=== PATIENT | male | born 2000 | race Caucasian/White ===

== ENCOUNTER 2020-04-21 09:24 | Emergency (ER) | payer BC, OTHER ==
[~2020-04-21] VITALS: Ht 177 cm; Wt 57.0 kg
[2020-04-21] MEDS ORDERED: TETANUS,DIPTH,PERTUSS P/F (BOOSTRIX) 0.5 ML VIAL IM ONE (09:45)
[2020-04-21] MEDS ORDERED: fentaNYL INJECTION 100 MCG/2 ML AMP IM ONE (09:45)
[2020-04-21] MEDS ORDERED: LACTATED RINGERS 1,000 ML IV ONE (09:46)
--- NOTE | 2020-04-21 09:46 | ED Fall/Injury ---
General Chief Complaint: Facial Problems Stated Complaint: JAW INJ Source: patient Exam Limitations: no limitations History of Present Illness Date Seen by Provider: Apr 21, 2020 Time Seen by Provider: 09:28 Initial Comments Patient arrives to ER by private conveyance with chief complaint that he was doing some drinking last night and thinks he drank more than 10 beers when he went to sleep in a bunk bed he rolled out landing on his face causing a small laceration to his chin. He has osteogenesis imperfecta. He's having pain anywhere else but he does have a mild headache. He has difficulty opening his jaw. Allergies and Home Medications Allergies Coded Allergies: No Known Drug Allergies (Unverified , 04/21/20) Patient Home Medication List Home Medication List Reviewed: Yes Review of Systems Review of Systems Constitutional: No chills, No diaphoresis Eyes: Denies Blindness, Denies Blurred Vision Ears, Nose, Mouth, Throat: see HPI; denies ear pain, denies ear discharge Respiratory: No cough, No short of breath Cardiovascular: No chest pain, No palpitations Gastrointestinal: No constipation, No diarrhea, No nausea All Other Systems Reviewed Negative Unless Noted: Yes Past Ihqvwqj-Nlndjw-Tsidcm Hx Patient Social History Alcohol Use: Occasionally Uses Alcohol Beverage of Choice: Beer Recreational Drug Use: Yes Drug of Choice: cannabis Smoking Status: Never a Smoker Recent Foreign Travel: No Contact w/Someone Who Travel: No Physical Exam Vital Signs Vital Signs - First Documented 04/21/20 09:47 Temp 37.0 Pulse 97 Resp 16 B/P (MAP) 121/83 (96) Pulse Ox 100 O2 Delivery Room Air Capillary Refill : Height, Weight, BMI Height: '" Weight: lbs. oz. kg; BMI Method: General Appearance: WD/WN, mild distress HEENT: PERRL/EOMI, other (oral mucosa is moist. He is able to separate his teeth about 4 mm limited to pain. Tenderness over bilateral TMJ) Neck: full range of motion, supple, normal inspection Cardiovascular: normal peripheral pulses, regular rate, rhythm Respiratory: no respiratory distress, no accessory muscle use Peripheral Pulses: 2+ Radial Pulses (R), 2+ Radial Pulses (L) Neurologic/Psychiatric: alert, normal mood/affect, oriented x 3 Skin: other (small few millimeter laceration on the inferior mentum) Progress/Results/Core Measures Results/Orders Lab Results Laboratory Tests Test 04/21/20 09:25 Range/Units White Blood Count 6.4 4.3-11.0 10^3/uL Red Blood Count 5.48 4.35-5.85 10^6/uL Hemoglobin 17.2 13.3-17.7 G/DL Hematocrit 48 40-54 % Mean Corpuscular Volume 88 80-99 FL Mean Corpuscular Hemoglobin 31 25-34 PG Mean Corpuscular Hemoglobin Concent 36 32-36 G/DL Red Cell Distribution Width 14.2 10.0-14.5 % Platelet Count 261 130-400 10^3/uL Mean Platelet Volume 10.1 7.4-10.4 FL Neutrophils (%) (Auto) 63 42-75 % Lymphocytes (%) (Auto) 27 12-44 % Monocytes (%) (Auto) 7 0-12 % Eosinophils (%) (Auto) 3 0-10 % Basophils (%) (Auto) 0 0-10 % Neutrophils # (Auto) 4.0 1.8-7.8 X 10^3 Lymphocytes # (Auto) 1.7 1.0-4.0 X 10^3 Monocytes # (Auto) 0.5 0.0-1.0 X 10^3 Eosinophils # (Auto) 0.2 0.0-0.3 10^3/uL Basophils # (Auto) 0.0 0.0-0.1 10^3/uL Sodium Level 143 135-145 MMOL/L Potassium Level 4.2 3.6-5.0 MMOL/L Chloride Level 109 H 98-107 MMOL/L Carbon Dioxide Level 20 L 21-32 MMOL/L Anion Gap 14 5-14 MMOL/L Blood Urea Nitrogen 9 7-18 MG/DL Creatinine 0.83 0.60-1.30 MG/DL Estimat Glomerular Filtration Rate > 60 BUN/Creatinine Ratio 11 Glucose Level 85 70-105 MG/DL Calcium Level 8.5 8.5-10.1 MG/DL Corrected Calcium 8.2 L 8.5-10.1 MG/DL Total Bilirubin 0.5 0.1-1.0 MG/DL Aspartate Amino Transf (AST/SGOT) 38 H 5-34 U/L Alanine Aminotransferase (ALT/SGPT) 43 0-55 U/L Alkaline Phosphatase 103 40-136 U/L Total Protein 7.4 6.4-8.2 GM/DL Albumin 4.4 3.2-4.5 GM/DL Serum Alcohol 150 H <10 MG/DL My Orders Orders - MARCELL ROBBINS Ct Head/Face/Cervical Wo (04/21/20 09:40) Dipht,Pertuss(Acell),Tet Adult (Boostrix (04/21/20 09:45) Cbc With Automated Diff (04/21/20 09:46) Comprehensive Metabolic Panel (04/21/20 09:46) Alcohol (04/21/20 09:46) Ed Iv/Invasive Line Start (04/21/20 09:46) Lactated Ringers (Lr 1000 Ml Iv Solution (04/21/20 09:46) Fentanyl Injection (Sublimaze Injection (04/21/20 10:00) Medications Given in ED Current Medications Medications Dose Ordered Sig/Shelly Route Start Time Stop Time Status Last Admin Dose Admin Diphtheria/ Tetanus/Acell Pertussis 0.5 ml ONCE ONCE IM 04/21/20 09:45 04/21/20 09:46 DC 04/21/20 10:00 0.5 ML Fentanyl Citrate 50 mcg ONCE ONCE IVP 04/21/20 10:00 04/21/20 10:01 DC 04/21/20 10:04 50 MCG Lactated Ringer's 1,000 ml @ 0 mls/hr Q0M ONCE IV 04/21/20 09:46 04/21/20 09:48 DC 04/21/20 09:56 1,000 MLS/HR Vital Signs/I&O 04/21/20 09:47 Temp 37.0 Pulse 97 Resp 16 B/P (MAP) 121/83 (96) Pulse Ox 100 O2 Delivery Room Air Progress Progress Note #1: Time: 09:49 Progress Note Fentanyl, CT of the head face and C-spine, labs including alcohol and a liter of lactated Ringer's. Suspect bilateral rami fracture Progress Note #2: Time: 11:42 Progress Note The patient was asleep when this provider entered the room. He aroused easily and went to the bathroom. We discussed the case with Dr. Garcia, oral maxillary facial surgeon. If his pain is under control he will follow him up at 11 AM on Friday morning. Diagnostic Imaging Diagonstic Imaging: CT Plain Films/CT/US/NM/MRI: facial bones, c-spine, head Comments NAME: HECTOR BILLINGSLEY [facility] REC#: [id number] PT STATUS: REG ER : 2000 PHYSICIAN: MARCELL ROBBINS MD ADMIT DATE: 04/21/20/ER Draft Date of Exam:04/21/20 CT HEAD/FACE/CERVICAL WO PROCEDURE: CT head, face, and cervical spine without contrast. TECHNIQUE: Multiple contiguous axial images were obtained through the head, neck, and facial bones without the use of intravenous contrast. Sagittal and coronal reformations through the cervical spine and facial bones were also performed. Auto Exposure Controls were utilized during the CT exam to meet ALARA standards for radiation dose reduction. INDICATION: Fall with trauma to the head, face and cervical spine. COMPARISON: No prior studies are available for comparison. CT HEAD: Ventricles and sulci are within normal limits. No sulcal effacement, midline shift or hemorrhage is detected. Cisterns are patent. Visualized paranasal sinuses demonstrate some mucosal thickening of ethmoid air cells but are otherwise clear. IMPRESSION: No acute intracranial process is detected. CT CERVICAL SPINE: Alignment is normal. No fracture or subluxation is identified. Prevertebral tissues are within normal limits. Odontoid is intact. IMPRESSION: No acute bony abnormality is detected. CT FACE: There is a comminuted fracture involving the left mandible at the level just distal to the mandibular condyle, involving the mandibular ramus. Mandibular condyle is in a slightly low anterior location of the TMJ. The remainder of the mandible is intact. Zygomatic arches are intact. The maxillary sinus finch, nasal bones and orbital finch appear to be intact. There is mucosal thickening of the frontal sinus as well as ethmoid air cells and bilateral maxillary sinuses. There is nasal septal deviation to the left. IMPRESSION: Comminuted left mandibular ramus fracture, as described. No other significant abnormality is detected. Dictated on workstation # [id number] Dict: 04/21/20 1102 Trans: 04/21/20 1112 [facility] [id number] Interpreted by: REBECCA CHURCHILL MD Electronically signed by: Reviewed: Reviewed by Me Departure Impression Primary Impression: Fracture of left ramus of mandible Qualified Codes: S02.642A - Fracture of ramus of left mandible, initial encounter for closed fracture Disposition: 01 HOME, SELF-CARE Condition: Stable Departure-Patient Inst. Decision time for Depature: 11:40 Referrals: ANNALISA GARCIA DDS Patient Instructions: Jaw Fracture (DC) Add. Discharge Instructions: Ibuprofen 800 mg every 8 hours as necessary for pain. Hydrocodone 15 mL every 6 hours as necessary for pain. Do not mix this with alcohol as it may cause unsafe drowsiness. This may also cause constipation so it's recommended that you take a capful of MiraLAX mixed in 6-8 ounces of fluid daily to stay regular. Ice applied directly to the left side of your jaw for 20 minutes every 2 hours for the first 2 days will help reduce swelling and pain. Liquid diet. After the first 2 days then heating pads and be helpful for your pain. Promptly return to the nearest ER if you're unable to swallow fluids or having difficulty breathing. All discharge instructions reviewed with patient and/or family. Voiced understanding. Scripts Hydrocodone/Acetaminophen (Hydrocodone-Acetamn 7.5-325/15) 118 Ml Solution 10-15 ML PO Q6H PRN for PAIN-BREAKTHROUGH for 4 Days, #200 ML 0 Refills Prov: MARCELL ROBBINS 04/21/20 Work/School Note: Work Release Form Date Seen in the Emergency Department: Apr 21, 2020 Return to Work: Apr 25, 2020 Restrictions: Need Release from Doctor Other Restrictions Listed Below: Minimize talking MARCELL ROBBINS Apr 21, 2020 09:46
[2020-04-21 09:47] VITALS: BP 121/83
[2020-04-21] MEDS ORDERED: fentaNYL INJECTION 100 MCG/2 ML AMP IVP ONE (10:00)
[2020-04-21 10:15] LABS: BASOPHILS % (AUTO) 0 % (0-10); EOSINOPHILS # (AUTO) 0.2 10^3/uL (0.0-0.3); EOSINOPHILS % (AUTO) 3 % (0-10); HEMATOCRIT 48 % (40-54); HEMOGLOBIN 17.2 G/DL (13.3-17.7); LYMPHOCYTES # (AUTO) 1.7 X 10^3 (1.0-4.0); LYMPHOCYTES % (AUTO) 27 % (12-44); MEAN CORPUSCULAR HEMOGLOBIN 31 PG (25-34); MEAN CORPUSCULAR HGB CONC 36 G/DL (32-36); MEAN CORPUSCULAR VOLUME 88 FL (80-99); MEAN PLATELET VOLUME 10.1 FL (7.4-10.4); MONOCYTES # (AUTO) 0.5 X 10^3 (0.0-1.0); MONOCYTES % (AUTO) 7 % (0-12); NEUTROPHILS % (AUTO) 63 % (42-75); PLATELET COUNT 261 10^3/uL (130-400); WHITE BLOOD COUNT 6.4 10^3/uL (4.3-11.0)
[2020-04-21 10:27] LABS: ALBUMIN 4.4 GM/DL (3.2-4.5); CHLORIDE 109 MMOL/L (98-107); POTASSIUM 4.2 MMOL/L (3.6-5.0); SODIUM 143 MMOL/L (135-145)
[2020-04-21 10:28] LABS: CALCIUM 8.5 MG/DL (8.5-10.1)
[2020-04-21 10:29] LABS: GLUCOSE 85 MG/DL (70-105); TOTAL PROTEIN 7.4 GM/DL (6.4-8.2)
[2020-04-21 10:30] LABS: CARBON DIOXIDE 20 MMOL/L (21-32)
[2020-04-21 10:31] LABS: BILIRUBIN,TOTAL 0.5 MG/DL (0.1-1.0)
[2020-04-21 10:33] LABS: ALKALINE PHOSPHATASE 103 U/L (40-136); CREATININE SERUM 0.83 MG/DL (0.60-1.30); GFR ESTIMATED > 60
[2020-04-21 10:34] LABS: BUN/CREATININE RATIO 11
[2020-04-21 10:36] LABS: ALANINE AMINOTRANSFERASE 43 U/L (0-55)
--- NOTE | 2020-04-21 11:12 | Diagnostic Imaging Report ---
PROCEDURE: CT head, face, and cervical spine without contrast. TECHNIQUE: Multiple contiguous axial images were obtained through the head, neck, and facial bones without the use of intravenous contrast. Sagittal and coronal reformations through the cervical spine and facial bones were also performed. Auto Exposure Controls were utilized during the CT exam to meet ALARA standards for radiation dose reduction. INDICATION: Fall with trauma to the head, face and cervical spine. COMPARISON: No prior studies are available for comparison. CT HEAD: Ventricles and sulci are within normal limits. No sulcal effacement, midline shift or hemorrhage is detected. Cisterns are patent. Visualized paranasal sinuses demonstrate some mucosal thickening of ethmoid air cells but are otherwise clear. IMPRESSION: No acute intracranial process is detected. CT CERVICAL SPINE: Alignment is normal. No fracture or subluxation is identified. Prevertebral tissues are within normal limits. Odontoid is intact. IMPRESSION: No acute bony abnormality is detected. CT FACE: There is a comminuted fracture involving the left mandible at the level just distal to the mandibular condyle, involving the mandibular ramus. Mandibular condyle is in a slightly low anterior location of the TMJ. The remainder of the mandible is intact. Zygomatic arches are intact. The maxillary sinus finch, nasal bones and orbital finch appear to be intact. There is mucosal thickening of the frontal sinus as well as ethmoid air cells and bilateral maxillary sinuses. There is nasal septal deviation to the left. IMPRESSION: Comminuted left mandibular ramus fracture, as described. No other significant abnormality is detected. Dictated by: Dictated on workstation # [id number]
[2020-04-21] MEDS ORDERED: HYDR118S10 PO (11:46)
== END 2020-04-21 11:54 | disposition home or self-care (01) ==
LOC: ER 09:25
DX: S02.642A Fracture of ramus of left mandible, initial encounter for closed fracture (principal); S01.81XA Laceration without foreign body of other part of head, initial encounter; Z23 Encounter for immunization; W06.XXXA Fall from bed, initial encounter
CPT/HCPCS: 36415; 70450; 70486; 72125; 80053; 80320; 85025; 90715

== ENCOUNTER 2020-09-21 00:11 | Emergency (ER) | payer BC ==
[~2020-09-21 00:11] MED LIST: HYDR118S10 PO
== END 2020-09-21 00:26 | disposition left against medical advice (07) ==
LOC: EDBD → EDUNIT# 00:11 → ER 00:17
DX: S01.91XD Laceration without foreign body of unspecified part of head, subsequent encounter (principal); X58.XXXD Exposure to other specified factors, subsequent encounter

== ENCOUNTER 2020-09-21 06:07 | Emergency (ER) | payer BC ==
[~2020-09-21] VITALS: Ht 177.8 cm; Wt 58.9 kg
--- NOTE | 2020-09-21 06:57 | ED Fall/Injury ---
General Chief Complaint: Laceration Stated Complaint: HEAD LAC Nursing Triage Note: right forehead laceration after falling approx. 0100 Source: patient Exam Limitations: no limitations History of Present Illness Date Seen by Provider: Sep 21, 2020 Time Seen by Provider: 06:40 Initial Comments Patient presents ER by private conveyance from home with chief complaint that in the wee hours of the morning around 130 to 2:00 he slipped on ice and struck his head. He denies loss of consciousness or vomiting. He was drinking. He says he still has a little alcohol on board but feels fine. Has been walking fine and has no nausea or other symptoms. He says he had a tetanus vaccine in the last 1 to 2 years. He was in earlier but decided to leave without being seen because of anxiety. Now he wants his head wound closed. Allergies and Home Medications Allergies Coded Allergies: No Known Drug Allergies (Unverified , 04/21/20) Home Medications Hydrocodone/Acetaminophen 118 Ml Solution, 10-15 ML PO Q6H PRN for PAIN- BREAKTHROUGH Prescribed by: MARCELL ROBBINS on 04/21/20 1146 Patient Home Medication List Home Medication List Reviewed: Yes Review of Systems Review of Systems Constitutional: No chills, No diaphoresis Eyes: Denies Blindness, Denies Blurred Vision Ears, Nose, Mouth, Throat: denies ear pain, denies ear discharge Respiratory: No cough, No short of breath Cardiovascular: No Hx of Intervention, No palpitations Gastrointestinal: No abdominal pain, No nausea Genitourinary: No discharge, No dysuria Past Oukrkqe-Eccyig-Trvnmv Hx Patient Social History Alcohol Use: Occasionally Uses Number of Drinks Today: AA Alcohol Beverage of Choice: Beer Drug of Choice: cannabis Smoking Status: Current Everyday Smoker Type Used: Cigarettes Recent Infectious Disease Expo: No Recent Hopitalizations: No Immunizations Up To Date Tetanus Booster (TDap): Less than 5yrs Seasonal Allergies Seasonal Allergies: No Past Medical History Surgeries: Yes Orthopedic Respiratory: No Cardiac: No Neurological: No Genitourinary: No Gastrointestinal: No Musculoskeletal: No Endocrine: No HEENT: No Cancer: No Psychosocial: No Integumentary: No Blood Disorders: No Physical Exam Vital Signs Vital Signs - First Documented 09/21/20 06:27 Temp 36.8 Pulse 95 Resp 18 B/P (MAP) 125/95 (105) Pulse Ox 100 O2 Delivery Room Air Capillary Refill : Less Than 3 Seconds Height, Weight, BMI Height: '" Weight: lbs. oz. kg; 18.00 BMI Method: General Appearance: WD/WN, no apparent distress HEENT: PERRL/EOMI, normal ENT inspection, TMs normal, pharynx normal, other (2.5 cm laceration linear into the subcutaneous tissue down to the periosteum right frontal scalp at the hairline. Negative for otto sign or raccoon eyes) Neck: non-tender, full range of motion, supple, normal inspection Cardiovascular: normal peripheral pulses, regular rate, rhythm Respiratory: lungs clear, normal breath sounds, no respiratory distress, no accessory muscle use Peripheral Pulses: 2+ Radial Pulses (R), 2+ Radial Pulses (L) Neurologic/Psychiatric: data assistant II-XII nml as tested, no motor/sensory deficits, alert, normal mood/affect, oriented x 3 Delmer Coma Score Best Eye Response: (4) Open Spontaneously Best Verbal Response: (5) Oriented Best Motor Response: (6) Obeys Commands Delmre Total: 15 Procedures/Interventions Wound Location: Scalp Other Wound Location Right frontal at the hairline Wound Length (cm): 2.5 Wound's Depth, Shape: linear, bone Wound Explored: no foreign body removed Irrigated w/ Saline (ccs): 150 Betadine Prep?: Yes (Chlorhexidine) Anesthesia: Lidocaine w/ Epi (2%) Volume Anesthetic (ccs): 2 Wound Debrided: minimal Staple Repair: Stapler 35W Number of Sutures: 5 Progress Skin was thoroughly cleaned flushed and reapproximated and then closed using 5 cayla. Patient tolerated the procedure very well. Progress/Results/Core Measures Results/Orders My Orders Orders - MARCELL ROBBINS Lidocaine/Epi 2% 1:100,000 (Xylocaine/Ep (09/21/20 07:00) Medications Given in ED Current Medications Medications Dose Ordered Sig/Shelly Route Start Time Stop Time Status Last Admin Dose Admin Lidocaine/ Epinephrine 20 ml ONCE ONCE INJ 09/21/20 07:00 09/21/20 07:01 DC 09/21/20 07:17 20 ML Vital Signs/I&O 09/21/20 09/21/20 06:27 07:17 Temp 36.8 36.8 Pulse 95 95 Resp 18 18 B/P (MAP) 125/95 (105) 125/95 (105) Pulse Ox 100 100 O2 Delivery Room Air Blood Pressure Mean: 105 Departure Impression Primary Impression: Fall Qualified Codes: W19.XXXA - Unspecified fall, initial encounter Additional Impressions: Head injury due to trauma Qualified Codes: S09.90XA - Unspecified injury of head, initial encounter Laceration of scalp without complication Qualified Codes: S01.01XA - Laceration without foreign body of scalp, initial encounter Disposition: HOME, SELF-CARE Condition: Improved Departure-Patient Inst. Decision time for Depature: 07:10 Referrals: [facility] (PCP) Primary Care Physician Patient Instructions: Minor Head Injury, Adult ED, Concussion in Adults, Laceration Repair With Cayla (DC) Add. Discharge Instructions: Keep the wound clean with regular soap and water, shampoo body wash etc. Do not use hydrogen peroxide, alcohol or iodine to clean the wound as this will delay wound healing. You may apply a thin dollop of Vaseline or triple antibiotic ointment over the cayla if you wish. You may cover with a dressing if you wish. Keep the wound clean otherwise. Return to the ER in 7 to 10 days to have the cayla removed at no additional charge. Return to the ER sooner if you are having increasing redness drainage or fever. Tylenol and ibuprofen. Return to the ER promptly if you start to have confusion, difficulty walking, intractable vomiting etc. All discharge instructions reviewed with patient and/or family. Voiced understanding. Work/School Note: School/Childcare Release Date Seen in the Emergency Department: Sep 21, 2020 Time Dismissed from Emergency Department: 07:10 Return to School: Sep 22, 2020 Restrictions: No Restrictions Other Restrictions Listed Below: May return to school when feeling better. MARCELL ROBBINS Sep 21, 2020 06:57
[2020-09-21] MEDS ORDERED: LIDOCAINE/EPI 2% 1:100,00 (XYLOCAINE) 20 ML VIAL INJ ONE (07:00)
[2020-09-21 07:17] VITALS: BP 125/95
== END 2020-09-21 07:17 | disposition home or self-care (01) ==
LOC: EDUNIT# 06:07 → ER 06:13 → EDBD 06:13 → ER 07:17
DX: S01.01XA Laceration without foreign body of scalp, initial encounter (principal); S09.90XA Unspecified injury of head, initial encounter; R40.2410 Glasgow coma scale score 13-15, unspecified time; F17.210 Nicotine dependence, cigarettes, uncomplicated; W22.8XXA Striking against or struck by other objects, initial encounter
CPT/HCPCS: 99282

== ENCOUNTER 2020-09-29 13:56 | Emergency (ER) | payer BC ==
[~2020-09-29] VITALS: Ht 177 cm; Wt 58.0 kg
[2020-09-29 13:56] VITALS: BP 109/67
== END 2020-09-29 14:05 | disposition home or self-care (01) ==
LOC: EDUNIT# 13:56 → ER 13:58
DX: S01.91XD Laceration without foreign body of unspecified part of head, subsequent encounter (principal); X58.XXXD Exposure to other specified factors, subsequent encounter

== ENCOUNTER 2021-09-26 16:56 | Emergency (ER) | payer BC ==
[~2021-09-26] VITALS: Ht 177 cm; Wt 58.9 kg
[2021-09-26 16:56] VITALS: BP 146/80
--- NOTE | 2021-09-26 17:14 | ED Lower Extremity ---
General Chief Complaint: Lower Extremity Stated Complaint: CUT FOOT Source: patient Exam Limitations: no limitations History of Present Illness Date Seen by Provider: Sep 26, 2021 Time Seen by Provider: 17:07 Initial Comments To ER with a cut to the plantar surface of the right foot that occurred last night around 1 AM while intoxicated. States that he stepped on a piece of glass. He has had it wrapped. He arrives using his own crutches. Tetanus is up-to-date in the last 5 years. History of osteogenesis imperfecta. Onset: just prior to arrival Severity: moderate Pain/Injury Location: right foot Method of Injury: direct blow Modifying Factors: Worse With Movement Allergies and Home Medications Allergies Coded Allergies: No Known Drug Allergies (Unverified , 04/21/20) Patient Home Medication List Home Medication List Reviewed: Yes Hydrocodone/Acetaminophen (Hydrocodone-Acetamn 7.5-325/15) 118 Ml Solution, 10- 15 ML PO Q6H PRN for PAIN-BREAKTHROUGH Prescribed by: MARCELL ROBBINS on 04/21/20 1146 Review of Systems Constitutional: see HPI EENTM: see HPI Respiratory: no symptoms reported Cardiovascular: no symptoms reported Genitourinary: no symptoms reported Musculoskeletal: no symptoms reported Skin: no symptoms reported Psychiatric/Neurological: No Symptoms Reported Past Fxvwrnf-Higyzy-Yvbmam Hx Immunizations Up To Date Tetanus Booster (TDap): Less than 5yrs Seasonal Allergies Seasonal Allergies: No Past Medical History Surgeries: Yes Orthopedic Respiratory: No Cardiac: No Neurological: No Genitourinary: No Gastrointestinal: No Musculoskeletal: No Endocrine: No HEENT: No Cancer: No Psychosocial: No Integumentary: No Blood Disorders: No Physical Exam Vital Signs Capillary Refill : Height, Weight, BMI Height: '" Weight: lbs. oz. kg; 18.00 BMI Method:Estimated General Appearance: WD/WN, no apparent distress HEENT: PERRL/EOMI, normal ENT inspection Neck: non-tender, full range of motion Respiratory: no respiratory distress, no accessory muscle use Hips: bilateral hip non-tender, bilateral hip normal inspection, bilateral hip normal range of motion Legs: bilateral leg non-tender, bilateral leg normal inspection, bilateral leg normal range of motion Knees: bilateral knee non-tender, bilateral knee normal inspection, bilateral knee normal range of motion Feet: right foot other (shallow 2cm laceration mid plantar foot, deeper 1.5cm lac down to sub-q tissues without active bleeding no foreign body. Cleansed with chlorhexidine/saline and irrigated with same. Left open, covered with antibiotic ointment, gauze and coban. ) Progress/Results/Core Measures Results/Orders My Orders Orders - PASCUAL MALDONADO APRN Foot, Right, 3 View (09/26/21 17:07) Departure Impression Primary Impression: Foot laceration Disposition: 01 HOME, SELF-CARE Condition: Stable Departure-Patient Inst. Decision time for Depature: 17:12 Referrals: [facility] (PCP/Family) Primary Care Physician Patient Instructions: Wound Care Add. Discharge Instructions: Wash this gently with soap and water at least once a day. Pat it dry, apply the nonstick gauze then a little more gauze and the brown wrap. Return to ER for any worsening. Take the antibiotics and pain medication as needed. Return to ER for any swelling, redness, puslike drainage. Continue to use crutches for the next week or so. All discharge instructions reviewed with patient and/or family. Voiced un derstanding. Scripts Hydrocodone/Acetaminophen (Hydrocodone-Acetamin 5-325 mg) 1 Each Tablet 1 TAB PO Q4H PRN for PAIN-MODERATE (5-7), #5 TAB Prov: PASCUAL MALDONADO APRN 09/26/21 Cephalexin (Cephalexin) 500 Mg Tablet 500 MG PO TID, #15 TAB Prov: PASCUAL MALDONADO APRN 09/26/21 PASCUAL MALDONADO APRN Sep 26, 2021 17:14
[2021-09-26] MEDS ORDERED: ACHD5005 PO (17:15)
[2021-09-26] MEDS ORDERED: CEPH500T PO (17:15)
--- NOTE | 2021-09-26 17:31 | Diagnostic Imaging Report ---
EXAMINATION: RIGHT FOOT radiograph EXAM DATE: (09/26/2021) COMPARISON: None available. HISTORY: right foot wound TECHNIQUE: 3 views of the RIGHT FOOT FINDINGS: There is no acute fracture, dislocation, or destructive osseous process. The joint spaces are normal. The soft tissues are normal. No suspicious radiopaque foreign body. IMPRESSION: 1. No acute osseous abnormality of the right foot. Dictated by: Dictated on workstation # [id number]
== END 2021-09-26 17:31 | disposition home or self-care (01) ==
LOC: EDUNIT# 16:56 → ER 16:58
DX: S91.311A Laceration without foreign body, right foot, initial encounter (principal); W25.XXXA Contact with sharp glass, initial encounter
CPT/HCPCS: 73630

== ENCOUNTER 2022-06-07 07:52 | Emergency (ER) | payer BC ==
[~2022-06-07] VITALS: Ht 177.8 cm; Wt 59.0 kg
[~2022-06-07 07:52] MED LIST changes: +ACHD5005 PO; +CEPH500T PO
[2022-06-07 08:00] VITALS: BP 145/98
--- NOTE | 2022-06-07 08:44 | Diagnostic Imaging Report ---
INDICATION: Left foot pain AP, oblique, and lateral views of the left foot are obtained. No fracture or acute bony abnormality is seen. Joint spaces are unremarkable. IMPRESSION: Negative left foot. Dictated by: Dictated on workstation # [id number]
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
== END 2022-06-07 09:39 | disposition home or self-care (01) ==
LOC: EDUNIT# 07:52 → ER 07:55
DX: S90.32XA Contusion of left foot, initial encounter (principal); F10.10 Alcohol abuse, uncomplicated; F17.210 Nicotine dependence, cigarettes, uncomplicated; Z28.310 Unvaccinated for COVID-19; X58.XXXA Exposure to other specified factors, initial encounter
CPT/HCPCS: 73630; 99283